=== PATIENT | female | born 1950 | race Caucasian/White ===

== ENCOUNTER 2016-10-29 03:07 | Inpatient (IN) | payer OTHER ==
[2016-10-29] MEDS ORDERED: Nitroglycerin TAB 0.4 MG* 0.4 MG TAB SL PRN (03:34)
[2016-10-29] MEDS ORDERED: Aspirin Low Dose CHEW TAB* 81 MG PO ONE (03:34)
--- NOTE | 2016-10-29 03:53 | ED ---
Morteza Shaw Rebecca, scribed for Georges Bailey MD on 10/29/16 at 0335 . HPI Chest Pain - HPI Summary HPI Summary: Pt is a 66 y/o F who presents to ED c/o CP. Pain began suddenly at 0130 this morning, waking up the pt from sleep. Pain has been constant and worsening since onset. CP is in the left lateral region with radiation to the back and is characterized as severe burning, ranked 7/10. Sx aggravated and alleviated by nothing. Last took 2 tabs of 81 mg ASA yesterday morning. PMHx sinus tachycardia. Prior similar episodes of chest pain, with the most recent episode being a few weeks ago, for which she usually does not require any medication. Last evaluated by her skin installer 1.5 months ago. NKDA. - History of Current Complaint Chief Complaint: EDChestPainROMI Time Seen by Provider: 10/29/16 03:18 Hx Obtained From: Patient Onset/Duration: Started Hours Ago, Still Present Time of Onset: 01:30 Timing: Constant Current Severity: Moderate Pain Intensity: 7 Pain Scale Used: 0-10 Numeric Chest Pain Location: Left Lateral Chest Pain Radiates: Yes Chest Pain Radiates To:: Back Character: Burning Aggravating Factor(s): Nothing Alleviating Factor(s): Nothing Associated Signs and Symptoms: Positive: Negative. Negative: Fever - Allergy/Home Medications Allergies/Adverse Reactions: Allergies Allergy/AdvReac Type Severity Reaction Status Date / Time No Known Allergies Allergy Verified 10/29/16 08:49 PMH/Surg Hx/FS Hx/Imm Hx Endocrine/Hematology History: Denies: Hx Diabetes Cardiovascular History: Reports: Hx Hypercholesterolemia, Other Cardiovascular Problems/Disorders - SINUS TACHYCARDIA Denies: Hx Congestive Heart Failure, Hx Hypertension, Hx Pacemaker/ICD GI History: Reports: Other GI Disorders - ABD PAIN W FLATULENCE History: Denies: Hx Renal Disease Sensory History: Reports: Hx Contacts or Glasses Denies: Hx Hearing Aid Opthamlomology History: Reports: Hx Contacts or Glasses Psychiatric History: Denies: Hx Panic Disorder - Cancer History Hx Chemotherapy: No Hx Radiation Therapy: No - Surgical History Surgery Procedure, Year, and Place: TONSIILS CHILD - Immunization History Date of Tetanus Vaccine: unknown Infectious Disease History: Denies: Traveled Outside the [place] in Last 30 Days - Family History Known Family History: Positive: Other - CVA (father) - Social History Alcohol Use: Occasionally Substance Use Type: Reports: None Smoking Status (MU): Never Smoked Tobacco Review of Systems Negative: Fever Positive: Chest Pain All Other Systems Reviewed And Are Negative: Yes Physical Exam Triage Information Reviewed: Yes Vital Signs On Initial Exam: Initial Vitals Temp Pulse Resp BP Pulse Ox 98.8 F 94 24 150/89 99 10/29/16 03:09 10/29/16 03:09 10/29/16 03:09 10/29/16 03:09 10/29/16 03:09 Vital Signs Reviewed: Yes Appearance: Positive: Well-Appearing, Pain Distress - mild discomfort Skin: Positive: Warm Head/Face: Positive: Normal Head/Face Inspection Eyes: Positive: JOSE ENT: Positive: Hearing grossly normal Neck: Positive: Supple Respiratory/Lung Sounds: Positive: Clear to Auscultation, Breath Sounds Present Cardiovascular: Positive: RRR Abdomen Description: Positive: Nontender, Soft Bowel Sounds: Positive: Present Musculoskeletal: Positive: Strength/ROM Intact Neurological: Positive: Alert, Oriented to Person Place, Time Diagnostics - Vital Signs Vital Signs Temp Pulse Resp BP Pulse Ox 10/29/16 03:09 98.8 F 94 24 150/89 99 - Laboratory Result Diagrams: 10/29/16 03:53 10/29/16 04:40 Lab Statement: Any lab studies that have been ordered have been reviewed, and results considered in the medical decision making process. - Radiology CXR Xray Interpretation: No Acute Changes Radiology Interpretation Completed By: ED Physician - EKG 0317 Cardiac Rate: NL - 91 bpm EKG Interpretation: Incomplete RBBB, no STEMI Chest Pain Course/Dx - Course Assessment/Plan: Pt is a 66 y/o F who presents to ED c/o sudden onset left anterior CP with radiation to the back since 0130 this morning. CP is characterized as severe burning, ranked 7/10. Last took 2 tabs of 81 mg ASA yesterday morning. PMHx sinus tachycardia. Prior similar episodes of chest pain , with the most recent episode being a few weeks ago, for which she usually does not require any medication. Last evaluated by her skin installer 1.5 months ago. NKDA. EKG reveals incomplete RBBB. CXR reveals no acute findings. Troponin is 0.00, D-Dimer < 200, BNP of 21. Pt will be D/C to home with Dx of chest pain , if repeat troponin is negative. She understands and agrees. Patient's medications reviewed this visit. - Diagnoses Provider Diagnoses: Chest pain - Provider Notifications Instructed by Provider To: Admit As Inpatient Discharge - Discharge Plan Condition: Stable Disposition: HOME The documentation as recorded by the Morteza allen Rebecca accurately reflects the service I personally performed and the decisions made by me, Georges Bailey MD.
[2016-10-29 03:58] LABS: ALT 21 U/L (7-52); Albumin 4.8 g/dL (3.2-5.2); Alkaline Phosphatase 64 U/L (34-104); BUN/Creatinine Ratio 18.2 (8-20); Blood Urea Nitrogen 16 mg/dL (6-24); CO2 Carbon Dioxide 19 mmol/L (22-32); Calcium 9.8 mg/dL (8.6-10.3); Chloride 104 mmol/L (101-111); Creatine Kinase 86 U/L (10-223); EGFR African American 82.9 (>60); EGFR Non-African American 64.5 (>60); Globulin 3.2 g/dL (2-4); Glucose 90 mg/dL (70-100); Sodium 132 mmol/L (133-145)
[2016-10-29 04:01] LABS: Anion Gap 9 mmol/L (2-11)
[2016-10-29 04:09] LABS: Hematocrit 42 % (35-47); Mean Corpuscular HGB Conc 33 g/dl (31-36); Mean Corpuscular Hemoglobin 30 pg (27-31); Mean Corpuscular Volume 90 fL (80-97); Mean Platelet Volume 8 um3 (7.4-10.4); Red Blood Count 4.72 10^6/ul (4.0-5.4); Red Cell Distribution Width 14 % (10.5-15); White Blood Count 6.8 10^3/ul (3.5-10.8)
[2016-10-29] MEDS ORDERED: Lidocaine 2% VISCOUS* 15 ML UDC PO ONE (04:53)
[2016-10-29] MEDS ORDERED: Al Hydrox/Mg Hydrox/Simet LIQ* 30 ML UDC PO ONE (04:53)
[2016-10-29 05:02] LABS: Magnesium 2.3 mg/dL (1.9-2.7)
[2016-10-29] MEDS ORDERED: Ketorolac INJ* 30 MG/ML 1 ML VIAL IV PUSH ONE (06:52)
[2016-10-29] MEDS ORDERED: Iohexol 350* (CONTRAST) 500 ML MDV IV ONE (08:51)
[2016-10-29] MEDS ORDERED: Al Hydrox/Mg Hydrox/Simet LIQ* 30 ML UDC PO PRN (08:53)
[2016-10-29] MEDS: Pantoprazole IV* 40 MG IV SCH (09:14)
[2016-10-29] MEDS: Morphine INJ* 2 MG/ML 1 ML SYRINGE IV PRN ×4 (09:17→22:45)
[2016-10-29] MEDS: Ondansetron INJ* 2 MG/ML VIAL IV PRN ×2 (09:22→17:49)
--- NOTE | 2016-10-29 10:26 | RAD ---
Indication: Chest pain. CTA of the chest was performed after IV contrast administration. Coronal and sagittal reconstructed images were obtained. The pulmonary arterial tree is well opacified. No filling defects are noted to suggest pulmonary embolus. The ascending, descending aorta demonstrates no evidence of aortic dissection. No evidence of aneurysmal dilatation is noted. Minimal atherosclerosis is noted. There is no mediastinal or hilar adenopathy noted. The trachea and major bronchi appear patent. Atelectasis is noted in the lingula. There may be some vascular congestion with prominent interstitial edema and prominent interlobular septal thickening. Cardiomegaly is noted without pericardial effusion. IMPRESSION: NO PULMONARY EMBOLUS IS NOTED. NO EVIDENCE OF AORTIC DISSECTION IS NOTED.
--- NOTE | 2016-10-29 10:36 | RAD ---
Indication: Tachycardia. 2 views of the chest including dual energy PA views are reviewed. Heart is of normal size and configuration. Lung owen show no pleural fluid, pneumonia or pneumothorax. IMPRESSION: No active cardiopulmonary disease is noted.
[2016-10-29] MEDS: Acetaminophen TAB* 325 MG PO PRN (14:07)
[2016-10-29] MEDS: Heparin VIAL(*) 5000 UNITS/ML VIAL (FIVE THOUSAND) SUBCUT SCH ×2 (14:07→22:45)
--- NOTE | 2016-10-30 00:04 | HP ---
CC: Dr. Debra Ellington * HISTORY AND PHYSICAL: DATE OF ADMISSION: 10/29/16 PRIMARY CARE PHYSICIAN: Dr. Debra Ellington. CHIEF COMPLAINT: Chest pain. HISTORY OF PRESENT ILLNESS: The patient is a 66-year-old woman who presented to [facility] with a chief complaint of chest pain that woke her up. She sat up and took deep breaths and that usually makes it go away. However, at this time it did not subside. She hung around her own for an hour and it got worse when she walked. The pain started in the middle of her chest and went to her arms and then her back. She has increased pain when she has a deep breath. She has no nausea or vomiting. She has no clamminess, no shortness of breath. She did get a little lightheaded earlier. She has no recent upper respiratory infection, no cough and no wheezing. PAST MEDICAL HISTORY: Significant for viral encephalitis, sinus tachycardia, dyslipidemia. CURRENT MEDICATIONS: Include: 1. Verapamil ER 180 mg daily. 2. Pravastatin 80 mg at bedtime. 3. Metoprolol succinate 25 mg daily. 4. Multivitamin 1 tablet daily. ALLERGIES: She has no known drug allergies. FAMILY HISTORY: Mother is alive at 87, alive and well. Father of a AAA. SOCIAL HISTORY: No tobacco. Occasionally will have some wine. No recreational drug use. She works at [employer]. She is a . Her son, Ian Dubon, is her healthcare proxy. She has 2 children. REVIEW OF SYSTEMS: A 14-point review of systems is completed with the patient. All pertinent positives and negatives are in the history of present illness, otherwise it is negative. PHYSICAL EXAMINATION GENERAL: A pleasant woman lying in bed, in no acute distress. VITAL SIGNS: Temperature 98.2 degrees, heart rate 70 beats per minute, respiratory rate 16 breaths per minute, pulse ox 97%, blood pressure 132/77. HEENT: Normocephalic, atraumatic. Pupils are equal, round and reactive to light. Moist mucous membranes. NECK: Supple. No JVD, bruits, palpable thyroid or lymphadenopathy. CHEST: Clear to auscultation and percussion bilaterally. CARDIOVASCULAR: S1, S2 appreciated. Regular rate and rhythm. No murmurs, gallops, or rubs. ABDOMEN: Positive bowel sounds in all 4 quadrants. Soft, nontender, and nondistended. No hepatosplenomegaly. EXTREMITIES: No cyanosis, clubbing, or edema. +2 peripheral pulses bilaterally. NEUROLOGIC: Alert and oriented x3. Moves all extremities. SKIN: No rashes or abnormalities. LABORATORY DATA: White count 6.8, hemoglobin 14.0, hematocrit 42, platelets 270,000. Sodium 132, potassium 3.9, chloride 104, CO2 19, BUN 16, creatinine 0.88, glucose 90. Troponin is 0.00. INR 0.89. D-dimer less than 0.89. IMAGING: Chest x-ray was interpreted by Radiology as no active cardiopulmonary disease noted. EKG shows normal sinus rhythm at 91 beats per minute, normal axis, nonspecific ST-T wave changes, incomplete right bundle branch block. CTA of the chest shows no pulmonary embolism is noted. No evidence of aortic dissection is noted. ASSESSMENT AND PLAN: 1. Chest pain, unclear etiology. Could be pleurisy, although the patient certainly does not have the classic signs of that. I highly doubt it is cardiac with negative troponins and very atypical history. For now, I will admit her to the hospital. I will monitor her on telemetry. I will give her Protonix IV. I will give her MiraLAX. I will also give her morphine p.r.n. She will receive Toradol. I may consider giving her that again. I do; however , anticipate the patient should recover further quickly and be able to go home shortly. 2. Sinus tachycardia. No evidence medications. 3. Hyperlipidemia, stable. Continue pravastatin. 4. DVT prophylaxis. We will put her on heparin subcu. 5. The patient is a full code. TIME SPENT: Over 75 minutes were spent on this H and P; more than 40 minutes of which is spent in direct [id number] contact with the patient in evaluation , physical exam, counseling, and coordination of care. [id number]/[facility] #: [id number] MTDD
[2016-10-30] MEDS: Ondansetron INJ* 2 MG/ML VIAL IV PRN ×3 (02:24→18:13)
[2016-10-30] MEDS: Morphine INJ* 2 MG/ML 1 ML SYRINGE IV PRN ×4 (02:29→13:38)
[2016-10-30] MEDS: Prochlorperazine TAB* 10 MG PO PRN ×2 (04:13→13:34)
[2016-10-30] MEDS: Heparin VIAL(*) 5000 UNITS/ML VIAL (FIVE THOUSAND) SUBCUT SCH ×3 (05:52→21:24)
[2016-10-30] MEDS ORDERED: Pneumococcal Vac Polyvalent* 0.5 ML VIAL IM ONE (09:00)
[2016-10-30] MEDS: Acetaminophen TAB* 325 MG PO PRN ×2 (09:23→20:02)
[2016-10-30] MEDS: Pantoprazole IV* 40 MG IV SCH (09:27)
[2016-10-30] MEDS: NS 0.9% 1000 ML* 1,000 ML IV SCH (13:40)
--- NOTE | 2016-10-30 14:17 | PN ---
Subjective Date of Service: 10/30/16 Interval History: Patient seen this morning. Continues to have intermittent chest burning and N/ V. Pain is not pleuritic, worse with laying flat. Threw up dinner last night, has not eaten at all today, tolerated some alexx heriberto. Family History: Unchanged from Admission Social History: Unchanged from Admission Past Medical History: Unchanged from Admission Objective Active Medications: Acetaminophen (Tylenol Tab*) 650 mg PO Q4H PRN Al Hydrox/Mg Hydrox/Simethicone (Maalox Plus*) 30 ml PO Q4H PRN Heparin Sodium (Porcine) (Heparin Vial(*)) 5,000 units SUBCUT Q8HR KATIE Sodium Chloride (Ns 0.9% 1000 Ml*) 1,000 mls @ 75 mls/hr IV PER RATE KATIE Morphine Sulfate (Morphine Inj (Syringe)*) 2 mg IV Q2H PRN Ondansetron HCl (Zofran Inj*) 4 mg IV Q4H PRN Pantoprazole Sodium (Protonix Iv*) 40 mg IV DAILY KATIE Prochlorperazine (Compazine Tab*) 10 mg PO Q6H PRN Vital Signs 10/30/16 13:38 Respiratory 18 Rate Oxygen Devices in Use Now: None Appearance: Middle-aged, F, sitting in chair with emesis basin on her lap Eyes: No Scleral Icterus Ears/Nose/Mouth/Throat: Mucous Membranes Moist Neck: NL Appearance and Movements; NL JVP Respiratory: Symmetrical Chest Expansion and Respiratory Effort, Clear to Auscultation Cardiovascular: NL Sounds; No Murmurs; No JVD, RRR Abdominal: NL Sounds; No Tenderness; No Distention Lymphatic: No Cervical Adenopathy Extremities: No Edema Skin: No Rash or Ulcers Neurological: Alert and Oriented x 3 Result Diagrams: 10/29/16 03:53 10/29/16 04:40 Assess/Plan/Problems-Billing Assessment: Chest pain, N/V, likely GI related in a 66 yo F with hx of HLD, sinus tachycardia, viral encephalitis - Patient Problems (1) Nausea and vomiting Current Visit: No Comment: chest burning. All seems GI related. Possible gastritis/GERD, viral infection. Continue PPI, antiemetics, maalox/tums, supportive care. Will plan on maintenance IVF. (2) HLD (hyperlipidemia) Current Visit: Yes Comment: Continue statin (3) DVT prophylaxis Current Visit: Yes Comment: HSQ Status and Disposition: Inpatient for intractable N/V
[2016-10-30] MEDS ORDERED: Calcium Carbonate CHEW TAB* 500 MG (TUMS) PO PRN (14:19)
[2016-10-31] MEDS: Acetaminophen TAB* 325 MG PO PRN ×2 (02:48→10:25)
[2016-10-31] MEDS: NS 0.9% 1000 ML* 1,000 ML IV SCH (04:12)
[2016-10-31 05:06] LABS: BUN/Creatinine Ratio 12.5 (8-20); Calcium 9.1 mg/dL (8.6-10.3); EGFR African American 92.6 (>60); Potassium 4.1 mmol/L (3.5-5.0)
[2016-10-31] MEDS: Heparin VIAL(*) 5000 UNITS/ML VIAL (FIVE THOUSAND) SUBCUT SCH (06:03)
[2016-10-31 07:52] VITALS: BP 129/80
[2016-10-31] MEDS: Pantoprazole IV* 40 MG IV SCH (09:03)
== END 2016-10-31 13:20 | disposition home or self-care (01) | DRG 313 ==
LOC: ED 03:07 → MEDTELE 08:23 → OBSVTOIN 10-30 12:38 → MED 10-30 16:41
PROVIDERS: ADMIT Internal Medicine; ATTEND Internal Medicine
PROC: 3E0234Z Introduction of Serum, Toxoid and Vaccine into Muscle, Percutaneous Approach (ICD-10-PCS; principal; 2016-10-30)
DX: R07.9 Chest pain, unspecified (principal); E78.5 Hyperlipidemia, unspecified; R11.2 Nausea with vomiting, unspecified; R00.0 Tachycardia, unspecified; Z82.49 Family history of ischemic heart disease and other diseases of the circulatory system; Z23 Encounter for immunization
CPT/HCPCS: 36415; 71020; 71275; 80048; 80053; 82550; 82553; 83605; 83735; 83880; 84484; 85025; 85379; 85610; 90732; 93005; A9270-GY; G0378; J1644; J1885; J2270; J2405; Q0164; Q9967